=== PATIENT | female | born 2000 | race Caucasian/White ===

== ENCOUNTER 2022-07-27 09:41 | Emergency (ER) | payer BC, SELFPAY ==
[2022-07-27 10:03] VITALS: BP 97/43; PULSE 106; RESP 18; TEMP 38.4; O2SAT 100
--- NOTE | 2022-07-27 10:23 | ED.URI ---
HPI - URI/Sore Throat General Chief Complaint: Upper Respiratory Infection Stated Complaint: Chest Congestion/Sore Throat Time Seen by Provider: 07/27/22 10:23 Source: patient and RN notes reviewed Mode of arrival: ambulatory Limitations: no limitations History of Present Illness HPI Narrative: 21 y/o female presented for c/o Headache, body aches, sinus pressure/congestion, cough, fever/chills. Onset yesterday. Denies sob, wheezing, n/v/d. Has taken Dayquil for symptoms. Denies sick contacts MD elicited complaint: cough Related Data Home Medications Medication Instructions Recorded Confirmed norethindrone 1 mg-ethinyl 1 tablet DAILY 07/27/22 07/27/22 estradiol 20 mcg (21)-iron 75 mg (7) tablet ([place] Fe 08/26 ()) Allergies Allergy/AdvReac Type Severity Reaction Status Date / Time gluten Allergy Diarrhea Verified 07/27/22 10:07 Review of Systems Review of Systems: ROS per HPI Exam Narrative: GENERAL: Ill-appearing, nontoxic EYES: PERRLA, conjunctivae clear ENT: Mucous membranes moist. TMs pearly fowler with dull light reflex bilaterally; no tragal tenderness. Oropharynx erythematous without lesions or exudate NECK: Supple. No lymphadenopathy CHEST: Clear to auscultation, breath sounds equal. No wheezing, rhonchi, rales, or stridor. HEART: Regular rate and rhythm. No murmur heard. SKIN: Warm, dry, no rash. NEURO: Alert and oriented x3. PSYCH: Normal mood and affect Course Course Emergency Course: Patient is aware of diagnosis, understands and agrees to treatment plan. Anticipatory guidance given. Patient agrees to follow-up as directed and is aware of reasons to seek care at the emergency department. Portions of this record may have been created with voice recognition software Level of Care: Express Care Visit Vital Signs Vital signs: Vital Signs Temperature 101.1 F H 07/27/22 10:03 Pulse Rate 106 H 07/27/22 10:03 Respiratory Rate 18 07/27/22 10:03 Blood Pressure 97/43 L 07/27/22 10:03 Pulse Oximetry 100 07/27/22 10:03 Oxygen Delivery Room Air 07/27/22 10:03 Temperature 101.1 F H 07/27/22 10:03 Pulse Rate 106 H 07/27/22 10:03 Respiratory Rate 18 07/27/22 10:03 Blood Pressure 97/43 L 07/27/22 10:03 Pulse Oximetry 100 07/27/22 10:03 Oxygen Delivery Room Air 07/27/22 10:03 reviewed MDM - URI/Sore Throat MDM Narrative Medical decision making narrative: Due to lack of resources, unable to test for influenza at this time. Patient verbalizes understanding. Advised supportive measures and signs and symptoms to go to the ER. Patient is appropriate for outpatient treatment and follow-up. Differential Diagnosis Differential diagnosis: Likely upper respiratory infection, sinusitis, viral infection and influenza Discharge Plan Discharge Clinical Impression: Viral infection Patient Disposition: Home, Self-Care Condition: Stable Additional Instructions: You should avoid crowds until you are fever free for 24 hours without the use of fever reducing medications, or the symptoms are improved Rest. Drink plenty of fluids. Tylenol and ibuprofen every 8 hours as needed for pain/fever Recommend Flonase spray and Zyrtec (or Claritin/Peyton) for sinus pressure/congestion over the counter Cough syrup may cause drowsiness; avoid driving or take it at night time. Follow up with your primary care provider as needed in 1-2 weeks Go to the ER for worsening symptoms or concerns Prescriptions: New oseltamivir [Tamiflu] 75 mg capsule 75 mg PO Q12H 5 Days Qty: 10 0RF No Action norethindrone-e.estradiol-iron [[place] Fe 08/26 (28)] 1 mg-20 mcg (21)/75 mg (7) tablet 1 tablet DAILY Follow-up/Referrals: Elias,Delaney Felix MD [Primary Care Provider] - Stand Alone Forms: Work/School Release IP Time of Disposition: 10:34
== END 2022-07-27 10:40 | disposition home or self-care (01) ==
PROVIDERS: Emergency Provider Nurse Practitioner Family; PCP Pediatrics
DX: B34.9 Viral infection, unspecified (principal)
CPT/HCPCS: 99213; G0463